=== PATIENT | male | born 1980 | race Caucasian/White ===

== ENCOUNTER 2018-06-10 00:53 | Outpatient (CLI) | payer MEDICARE, MEDICAID, SELFPAY ==
--- NOTE | 2018-06-10 13:50 | W.NUTCONSULT ---
Date of service: 06/10/18 Time of Service: 13:50 Nutritional Consult ASSESSMENT: Lee presents with his caseworker protective services and his guardian for nutritional counseling for weight management. Lee has gone through some changes in his living situation with different eating environments, which his guardian reports that she suspects has led to his weight changes. His guardian, Allison, states that their goal for coming today is to find out how much Lee should be eating every day and how often can he have foods that would be considered junk foods. Lee gave a dietary recall which shows that his typical day of eating is quite moderate and includes fruits and vegetables. He mostly drinks water. He does have one day a week where he reports that he likes to go to [employer], but he gets a small personal pizza and a salad. Lee reports that he is physically active each week with swimming and the treadmill. He also has a Wii which he could use to be active however right now he just plays Wheel of [employer] on it. Lee also takes some medications which can contribute to weight gain or at least difficulty with losing weight. Lee is 64 [address] today. NUTRITIONAL DIAGNOSIS: Overweight as evidenced by BMI of 29 kg/m2. INTERVENTION: We discussed the definition of overweight and that it is an indicator to stop gaining weight and even work towards losing 10% of body weight gradually. We discussed that a goal weight for Lee would be between 150 and 160 lbs. We reviewed a 1600 calorie eating plan for weight reduction using choose my plate. Provided written materials. Also provided written materials regarding healthy snack options for Lee. We discussed that certainly if Lee is eating 1600 calories on most days, that he can have his special Saturday meal. We also talked about off-setting that day with increased calorie burning. Lee verbalized a good understanding of the information we discussed. MONITORING AND EVALUATION: 1. Lee will return in one month. Will monitor his progress. 2. Will evaluate his nutrition care plan at that [facility] and adjust as needed. Thank you for the consult. Time Spent in Nutritional Counseling and Treatment: 40 minutes
--- NOTE | 2018-06-10 14:09 | NS.NUTBLAN_ITS ---
Date of service: 06/10/18 Time of Service: 13:50 Nutritional Consult ASSESSMENT: Lee presents with his onsite case manager and his guardian for nutritional counseling for weight management. Lee has gone through some changes in his living situation with different eating environments, which his guardian reports that she suspects has led to his weight changes. His guardian, Allison, states that their goal for coming today is to find out how much Lee should be eating every day and how often can he have foods that would be considered junk foods. Lee gave a dietary recall which shows that his typical day of eating is quite moderate and includes fruits and vegetables. He mostly drinks water. He does have one day a week where he reports that he likes to go to [employer], but he gets a small personal pizza and a salad. Lee reports that he is physically active each week with swimming and the treadmill. He also has a Wii which he could use to be active however right now he just plays Wheel of [employer] on it. Lee also takes some medications which can contribute to weight gain or at least difficulty with losing weight. Lee is 64 and [address] today. NUTRITIONAL DIAGNOSIS: Overweight as evidenced by BMI of 29 kg/m2. INTERVENTION: We discussed the definition of overweight and that it is an indicator to stop gaining weight and even work towards losing 10% of body weight gradually. We discussed that a goal weight for Lee would be between 150 and 160 lbs. We reviewed a 1600 calorie eating plan for weight reduction using choose my plate. Provided written materials. Also provided written materials regarding healthy snack options for Lee. We discussed that certainly if Lee is eating 1600 calories on most days, that he can have his special Saturday meal. We also talked about off-setting that day with increased calorie burning. Lee verbalized a good understanding of the information we discussed. MONITORING AND EVALUATION: 1. Lee will return in one month. Will monitor his progress. 2. Will evaluate his nutrition care plan at that [facility] and adjust as needed. Thank you for the consult. Time Spent in Nutritional Counseling and Treatment: 40 minutes
== END 2018-06-10 01:13 ==
PROVIDERS: PCP Family Medicine; Visit Provider Dietitian, Registered
DX: R63.5 Abnormal weight gain (principal); Z68.29 Body mass index [BMI] 29.0-29.9, adult; E66.3 Overweight; Z71.3 Dietary counseling and surveillance
CPT/HCPCS: 97802

== ENCOUNTER 2019-01-08 11:20 | Outpatient (REF) | payer MEDICARE, MEDICAID, SELFPAY ==
--- NOTE | 2019-01-08 13:30 | SKI_PTH ---
PATIENT: Lee Contreras LOC: [facility] U#:[id number] AGE/SX: 38/M ROOM: RE01/08/[address]: Tayler Alcaraz V : 1980 BED: DIS: 01/08/2019 SPEC #: [id number] RECD: 01/09/19 12:46 STATUS: NICCI RELiza #: [id number] EDEN: 01/08/19 13:[address]: Tayler Alcaraz V DEPT: Surgical Specimen RECD BY: Niurka Arciniega Tissues: 1 - SKIN BIOPSY(SHAVE/PUNCH) Procedures: SKIN LEVEL 4 Comments: [id number]
== END 2019-01-08 11:40 ==
LOC: NCHCN 11:20
PROVIDERS: PCP Family Medicine; Visit Provider Family Medicine
DX: L82.1 Other seborrheic keratosis (principal)
CPT/HCPCS: 88305

== ENCOUNTER 2019-09-04 17:31 | Outpatient (REF) | payer MEDICARE, MEDICAID, SELFPAY ==
[2019-09-06 07:07] LABS: COVID-19 RT-PCR Result NEGATIVE (Negative)
== END 2019-09-04 17:51 ==
LOC: NCHCN 17:31
PROVIDERS: PCP Family Medicine; Visit Provider Nurse Practitioner Family
DX: J02.9 Acute pharyngitis, unspecified (principal)
CPT/HCPCS: U0003

== ENCOUNTER 2019-09-08 14:25 | Outpatient (REF) | payer MEDICARE, MEDICAID, SELFPAY ==
[2019-09-08 19:20] LABS: HCT 47.9 % (40.0-50.0); HGB 16.5 g/dL (13.5-17.5); Mean Corp. HGB Concentration 34.4 g/dL (32.0-36.0); Mean Corpuscular Hemoglobin 28.5 pg (27.0-33.0); Mean Corpuscular Volume 82.9 fL (80-95); Mean Platelet Volume 11.9 fL (8.0-11.0); Platelet Count 209 x1000/uL (130-400); RBC 5.78 m/cumm (4.50-6.00); RBC Distribution Width 13.4 % (11.8-14.1); White Blood Cell Count 6.57 k/cumm (4.4-10.8)
[2019-09-08 19:40] LABS: ALT 34 U/L (16-63); AST 19 U/L (15-37); Albumin 4.2 g/dL (3.4-5.0); Alkaline Phosphatase 101 U/L (46-116); Anion Gap 10.8 mmol/L (3-11); BUN 13 mg/dL (7-18); Bilirubin, Total 0.4 mg/dL (0.2-1.0); CO2 27.2 mmol/L (21.0-32.0); CREATININE 1.12 mg/dL (0.70-1.30); Calculated LDL 146 mg/dL (<100); Chloride 104 mmol/L (98-107); Cholesterol 220 mg/dL (<200); Glucose 94 mg/dL (74-106); HDL Cholesterol 38 mg/dL (40-60); Magnesium 1.8 mg/dL (1.8-2.4); Potassium 3.7 mmol/L (3.5-5.1); Sodium 142 mmol/L (136-145); TSH (W/Ref FT4) 1.92 uIU/mL (0.36-3.74); Total Protein 6.9 g/dL (6.4-8.2); Triglyceride 182 mg/dL (<150)
== END 2019-09-08 14:45 ==
LOC: NCHCN 14:25
PROVIDERS: PCP Family Medicine; Visit Provider Family Medicine
DX: G40.209 Localization-related (focal) (partial) symptomatic epilepsy and epileptic syndromes with complex partial seizures, not intractable, without status epilepticus (principal); Z79.899 Other long term (current) drug therapy
CPT/HCPCS: 80053; 80061; 85027; 83735; 84443

== ENCOUNTER 2020-09-08 16:51 | Outpatient (REF) | payer MEDICARE, MEDICAID, SELFPAY ==
[2020-09-08 18:28] LABS: HCT 45.8 % (40.0-50.0); MCH 28.5 pg (27.0-33.0); MCHC 34.9 % (32.0-36.0); MCV 81.5 fL (80-95); MPV 10.8 fL (8.0-11.0); Platelet Count 223 10^3/uL (130-400); RBC 5.62 10^6/uL (4.36-5.78); RDW 12.2 % (11.8-14.1); RDW-SD 35.6 fL; WBC 7.64 10^3/uL (4.4-10.8)
[2020-09-08 18:58] LABS: Albumin 3.7 g/dL (3.4-5.0); Alkaline Phosphatase 111 U/L (46-116); BUN 11 mg/dL (7-18); Bilirubin, Total 0.5 mg/dL (0.2-1.0); CREATININE 0.9 mg/dL (0.70-1.30); Calcium 8.9 mg/dL (8.5-10.1); Chloride 104 mmol/L (98-107); Glucose 112 mg/dL (74-106); Potassium 4.2 mmol/L (3.5-5.1); Sodium 141 mmol/L (136-145); Total Protein 6.4 g/dL (6.4-8.2)
[2020-09-08 18:59] LABS: ALT 34 U/L (16-63); AST 23 U/L (15-37)
== END 2020-09-08 16:52 | disposition home or self-care (01) ==
LOC: NCHCN 16:51
PROVIDERS: PCP Family Medicine; Visit Provider Family Medicine
DX: G40.209 Localization-related (focal) (partial) symptomatic epilepsy and epileptic syndromes with complex partial seizures, not intractable, without status epilepticus (principal)
CPT/HCPCS: 80053; 85027

== ENCOUNTER 2021-09-12 15:11 | Outpatient (REF) | payer MEDICARE, MEDICAID, SELFPAY ==
[2021-09-12 19:51] LABS: HCT 49.6 % (40.0-50.0); HGB 16.5 g/dL (13.5-17.5); MCH 28.9 pg (27.0-33.0); MCHC 33.3 % (32.0-36.0); MCV 87 fL (80-95); MPV 11.9 fL (8.0-11.0); Platelet Count 171 10^3/uL (130-400); RBC 5.71 10^6/uL (4.36-5.78); RDW 12.2 % (11.8-14.1); RDW-SD 38.5 fL; WBC 6.68 10^3/uL (4.4-10.8)
[2021-09-12 19:57] LABS: ALT 29 U/L (16-63); AST 23 U/L (15-37); Alkaline Phosphatase 90 U/L (46-116); Anion Gap 10.4 mmol/L (3-11); BUN 12 mg/dL (7-18); Bilirubin, Total 0.3 mg/dL (0.2-1.0); CO2 24.6 mmol/L (21.0-32.0); CREATININE 0.9 mg/dL (0.70-1.30); Chloride 107 mmol/L (98-107); Glucose 104 mg/dL (74-106); Potassium 3.9 mmol/L (3.5-5.1); Sodium 142 mmol/L (136-145); TSH (W/Ref FT4) 3.62 uIU/mL (0.36-3.74); Total Protein 6.8 g/dL (6.4-8.2)
[2021-09-15 11:35] LABS: FREE T4 0.76 ng/dL (0.76-1.46)
== END 2021-09-12 15:12 | disposition home or self-care (01) ==
LOC: NCHCN 15:11
PROVIDERS: PCP Family Medicine; Visit Provider Family Medicine
DX: R63.5 Abnormal weight gain (principal); G40.209 Localization-related (focal) (partial) symptomatic epilepsy and epileptic syndromes with complex partial seizures, not intractable, without status epilepticus
CPT/HCPCS: 80053; 85027; 84439; 84443

== ENCOUNTER 2021-11-06 18:05 | Outpatient (REF) | payer MEDICARE, MEDICAID, SELFPAY ==
[2021-11-08 11:23] LABS: COVID-19 RT-PCR UVMMC Result Negative (Negative)
== END 2021-11-06 18:06 | disposition home or self-care (01) ==
LOC: LBN 18:05
PROVIDERS: PCP Family Medicine; Visit Provider Nurse Practitioner Family
DX: Z20.822 Contact with and (suspected) exposure to COVID-19 (principal)
CPT/HCPCS: U0003

== ENCOUNTER 2022-09-13 14:23 | Outpatient (REF) | payer MEDICARE, MEDICAID, SELFPAY ==
[2022-09-13 18:56] LABS: HGB 16.3 g/dL (13.5-17.5); MCH 28.8 pg (27.0-33.0); MCHC 34.7 % (32.0-36.0); MCV 83 fL (80-95); MPV 11.3 fL (8.0-11.0); Platelet Count 233 10^3/uL (130-400); RBC 5.65 10^6/uL (4.36-5.78); RDW 12.5 % (11.8-14.1); RDW-SD 37.4 fL
[2022-09-13 19:24] LABS: ALT 33 U/L (16-63); AST 25 U/L (15-37); Albumin 4.1 g/dL (3.4-5.0); Alkaline Phosphatase 86 U/L (46-116); Anion Gap 9.9 mmol/L (3-11); BUN 14 mg/dL (7-18); Bilirubin, Total 0.4 mg/dL (0.2-1.0); CO2 25.1 mmol/L (21.0-32.0); CREATININE 1.2 mg/dL (0.70-1.30); Calcium 9.3 mg/dL (8.5-10.1); Chloride 105 mmol/L (98-107); Estimated GFR 76.95 (mL/min/1.73m2); Glucose 113 mg/dL (74-106); Potassium 3.7 mmol/L (3.5-5.1); Sodium 140 mmol/L (136-145); TSH (W/Ref FT4) 3.49 uIU/mL (0.36-3.74); Total Protein 7.4 g/dL (6.4-8.2)
[2022-09-13 19:32] LABS: Hemoglobin A1C 5.1 % (<5.7)
== END 2022-09-13 14:24 | disposition home or self-care (01) ==
LOC: NCHCN 14:23
PROVIDERS: PCP Family Medicine; Visit Provider Family Medicine
DX: R63.5 Abnormal weight gain (principal); F84.0 Autistic disorder; G40.209 Localization-related (focal) (partial) symptomatic epilepsy and epileptic syndromes with complex partial seizures, not intractable, without status epilepticus; R73.09 Other abnormal glucose
CPT/HCPCS: 80053; 85027; 83036; 84443